=== PATIENT | female | born 1955 | race Caucasian/White ===

== ENCOUNTER 2017-10-08 14:30 | Outpatient (CLI) | payer OTHER | END 2017-10-08 14:31 | disposition home or self-care (01) | LOC: BICMAMMO 14:30 | PROVIDERS: ATTEND Obstetrics & Gynecology | DX: Z12.31 Encounter for screening mammogram for malignant neoplasm of breast (principal); N64.89 Other specified disorders of breast | CPT/HCPCS: 77063; 77067 ==

== ENCOUNTER 2017-10-22 09:05 | Outpatient (CLI) | payer OTHER | END 2017-10-22 09:06 | disposition home or self-care (01) | LOC: BICMAMMO 09:05 | PROVIDERS: ATTEND Obstetrics & Gynecology | DX: Z12.31 Encounter for screening mammogram for malignant neoplasm of breast (principal) | CPT/HCPCS: G0279 ==

== ENCOUNTER 2017-10-31 14:00 | Outpatient (CLI) | payer OTHER ==
[2017-10-31 15:25] LABS: Hemoglobin 13.3 g/dL (12.0-16.0); Mean Corpuscular HGB CONC 34.2 g/dL (32.0-36.0); Mean Corpuscular Hemoglobin 34.2 pg (27.0-31.0); Mean Platelet Volume 7.1 fL (7.4-10.4); Platelet Count 221 thou/uL (130-400); RBC Distribution Width 11.4 % (11.5-14.5); White Blood Cell (WBC) Count 5.2 thou/uL (4.8-10.8)
[2017-10-31 15:30] LABS: PTT 29.1 SEC (22.9-36.1); Prothrombin Time 13.2 SEC (12.0-14.7)
[2017-10-31 15:43] LABS: Anion Gap 13 mmol/L (10-20); BUN (Urea Nitrogen) 22 mg/dL (9.8-20.1); Calc. Creatinine Clearance 0 mL/min (70-130); Calcium 9.5 mg/dL (7.8-10.44); Carbon Dioxide 27 mmol/L (22-29); Chloride 105 mmol/L (98-107); Estimated GFR-MDRD 59; Glucose 90 mg/dL (70-105); Potassium 5.1 mmol/L (3.5-5.1); Sodium 140 mmol/L (136-145)
== END 2017-10-31 14:01 | disposition home or self-care (01) ==
LOC: LABBT 14:00
PROVIDERS: ATTEND Orthopaedic Surgery
DX: Z01.818 Encounter for other preprocedural examination (principal); M17.11 Unilateral primary osteoarthritis, right knee
CPT/HCPCS: 80048; 85027; 85610; 85730; 86850; 86900; 86901; 87081

== ENCOUNTER 2017-11-04 06:07 | Inpatient (IN) | payer OTHER ==
[2017-10-29 14:55] VITALS: BMI 47.8
[2017-11-04] MEDS ORDERED: Vancomycin HCl 1.5 GM in Sodium Chloride 0.9% 250 ML 300 ML IVPB SCH ×2 (06:30→19:00)
[2017-11-04] MEDS ORDERED: CEFAZOLIN/Water 2 GM/20 ML SYRINGE ONE (06:41)
[2017-11-04] MEDS ORDERED: Sodium Chloride 0.9% 100 ML ONE (06:41)
[2017-11-04] MEDS ORDERED: Lidocaine 1% (PF) 30 ML VIAL ONE (06:45)
[2017-11-04] MEDS ORDERED: Midazolam HCl 2 mg/2 ml Vial ONE (06:45)
[2017-11-04] MEDS ORDERED: Fentanyl 100 MCG/2 ML VIAL ONE ×2 (06:45→08:11)
[2017-11-04] MEDS ORDERED: Neomycin-Polymyxin 1 ML AMP ONE ×2 (06:58→07:00)
[2017-11-04] MEDS ORDERED: Bupivacaine/Epinephrine 0.25% 30 ML VIAL ONE ×2 (06:58→06:59)
[2017-11-04] MEDS ORDERED: traMADol HCl 50 MG TAB PO PRN ×3 (07:11→09:55)
[2017-11-04] MEDS ORDERED: Ketorolac Tromethamine 30 MG/ML VIAL IVP PRN (07:11)
[2017-11-04] MEDS ORDERED: HYDROcodone/Acetaminophen 10/325 mg Tablet PO PRN ×2 (07:11→09:55)
[2017-11-04] MEDS ORDERED: Ondansetron HCl/PF 4 MG/2 ML Vial IVP PRN ×3 (07:11→09:55)
[2017-11-04] MEDS ORDERED: Zolpidem Tartrate 5 MG TAB PO PRN ×2 (07:11→09:55)
[2017-11-04] MEDS ORDERED: Promethazine HCl 25 MG/ML VIAL IM PRN ×3 (07:11→09:55)
[2017-11-04] MEDS ORDERED: Promethazine HCl 25 MG/ML VIAL SLOW IVP PRN (08:50)
[2017-11-04] MEDS ORDERED: diphenhydrAMINE 25 MG CAP PO PRN (09:55)
[2017-11-04] MEDS ORDERED: Acetaminophen 325 MG TAB PO PRN (09:55)
[2017-11-04] MEDS ORDERED: Acetaminophen 1,000 MG in Premix Bag 1 BAG IVPB SCH (10:00)
[2017-11-04] MEDS ORDERED: Tranexamic Acid 1,000 MG in Sodium Chloride 0.9% 100 ML IVPB SCH (10:00)
[2017-11-04] MEDS ORDERED: Meperidine HCl/PF 25 MG/ML VIAL ONE (10:26)
--- NOTE | 2017-11-04 12:09 | RAD ---
2 VIEWS RIGHT KNEE: Date: 11/04/17 HISTORY: Status post right knee arthroplasty. FINDINGS: Two views of the right knee show the patient to be status post right knee arthroplasty without periha rdware lucency or fracture. Air in the soft tissues and underlying skin elsa are from recent surge ry. IMPRESSION: Status post right knee arthroplasty without evidence of complication. POS: [facility]
--- NOTE | 2017-11-04 13:15 | OP ---
DATE OF PROCEDURE: 11/04/2017 PREOPERATIVE DIAGNOSIS: Osteoarthrosis, right knee. POSTOPERATIVE DIAGNOSIS: Osteoarthrosis, right knee. PROCEDURE: Right total knee arthroplasty. ANESTHESIA: General. SURGEON: Guy Rizvi M.D. LIQUOR COMMISSIONER: DEBBIE Delacruz COMPLICATIONS: None. CONDITION: Good. ESTIMATED BLOOD LOSS: 250 mL DRAINS: None. TOURNIQUET: None. TECHNIQUE: Consent was obtained. The patient was taken to the operating room and placed in supine p osition. Adequate general anesthesia achieved, the patient's right knee was examined. The patient l acked approximately 8-10 degrees full extension, had approximately 100 degrees of flexion. Ligaments are stable. There is varus deformity. The right knee was then positioned, prepped and draped in th e usual sterile fashion. A tourniquet was not amenable due to the patient's thigh habitus. The jos dard midline vertical incision was made, was taken down to subcutaneous tissue exposing extensor mech anism. Medial parapatellar arthrotomy was performed. Patella subluxed laterally. The patient had s evere medial and patellofemoral arthrosis. Using intramedullary guide, distal 5-degree valgus resect ion on the femur was performed using AP and epicondylar access, proper rotation, position of size 5 c utting block was placed. Anterior, posterior, and chamfer cuts were completed for size 5 evolution f emur. Osteophytes that had also been removed. The tibia was then subluxed anteriorly and the fountain vending mechanic al guide was used to reference from the medial compartment. A proper resection was performed and men isci and cruciate ligaments were debrided. Flexion, extension gaps were then checked with a 10 and t hen 12 mm spacer. The good balancing was noted at 0 and 90 degrees. The patella was then measured a pproximately 7-8 mm resection was performed and 35 mm patella was medialized. Trial components were then placed, 5 femur, 5 tibia, 35 patella with a 12 mm medial pivot bearing surface trial. This was put through range of motion. The patient had excellent flexion and extension, good balancing through a full range. Flexion was still limited to approximately 115 degrees. The patient did have full ex tension. The patellofemoral tracking and alignment was good. It was then irrigated copiously. All surfaces were prepared for cementing. The 5 femur, 5 tibia, and 35 patella were cemented. Excess ce ment removed and again allowed to harden with the 12 mm bearing surface. This was again trialled and the 12 mm was chosen and snap fit. After copious irrigation, the arthrotomy was closed with #2 mers suri and #1 Vicryl, the subcu with 0 and 2-0 Vicryl, and the skin with elsa. A sterile bulky dedrick ssing was applied and the patient taken to recovery in stable condition. Prognosis is good. Begin r ehab protocol. DEBBIE Delacruz, was essential and implantation of the device. He has specialized orthopedic skills al [facility] for retraction and instrumentation of the implant. The patient had significant sized to her medical center clinic h, which required fairly extensive retraction and mobilization to visualize.
[2017-11-04] MEDS ORDERED: Bupivacaine 0.25% HCL 30 ML VIAL ONE (14:30)
[2017-11-04] MEDS ORDERED: Ropivacaine 0.5% HCl/PF (150 MG/30 ML VIAL) ONE (14:30)
[2017-11-04] MEDS ORDERED: Bupivacaine HCl 0.5%/Epinephrine 1:200,000/PF 30 ml Vial ONE (14:30)
[2017-11-04] MEDS ORDERED: ePHEDrine/0.9% NaCl/PF SYRINGE 50 mg/10 ml ONE (14:33)
[2017-11-04] MEDS ORDERED: Ondansetron HCl/PF 4 MG/2 ML Vial ONE (14:33)
[2017-11-04] MEDS ORDERED: Ketorolac Tromethamine 30 MG/ML VIAL ONE (14:33)
[2017-11-04] MEDS ORDERED: Lidocaine 1% PF 5 ML VIAL ONE (14:33)
[2017-11-04] MEDS ORDERED: PROPOFOL 200 MG/20 ML VIAL ONE (14:33)
[2017-11-04] MEDS: CEFAZOLIN/Water 2 GM/20 ML SYRINGE SLOW IVP SCH ×2 (14:40→22:44)
[2017-11-04] MEDS: Ketorolac Tromethamine 30 MG/ML VIAL IVP SCH ×2 (14:41→21:07)
[2017-11-04] MEDS: Sodium Chloride 0.9% 1,000 ML IV SCH ×2 (14:43→21:11)
--- NOTE | 2017-11-04 20:53 | PDOC.PN ---
- Subjective Encounter Start Date: 11/04/17 Encounter Start Time: 20:35 Subjective: Consult for gen med mgmt. s/p R TKA today. No new complaints. Reviewed -: pertinent hx, labs, x-rays and EKG. - Objective MAR Reviewed: Yes Vital Signs & Weight: Vital Signs (12 hours) Temp Pulse Resp BP BP Pulse Ox 11/04/17 19:56 98.7 F 62 16 126/79 98 11/04/17 14:09 162/76 H 11/04/17 12:00 97.8 F 69 16 138/80 94 L Weight Weight 270 lb I&O: 11/03/17 11/04/17 11/05/17 06:59 06:59 06:59 Output Total 200 Balance -200 Additional Labs: Laboratory Tests 10/31/17 10/31/17 10/31/17 14:48 14:48 14:48 WBC 5.2 Hgb 13.3 Hct 39.0 MCV 100.0 H Plt Count 221 PT 13.2 INR 1.0 APTT 29.1 Sodium 140 Potassium 5.1 Chloride 105 Carbon Dioxide 27 Anion Gap 13 BUN 22 H Creatinine 0.96 Estimated GFR (MDRD) 59 Glucose 90 Calcium 9.5 EKG Reviewed by me: Yes (NSR, attenuated R-wave progression, HR 50's) Phys Exam - Physical Examination Constitutional: NAD HEENT: PERRLA, sclera anicteric, oral pharynx no lesions Neck: no nodes, no JVD, full ROM Respiratory: no wheezing, no rales, no rhonchi, clear to auscultation bilateral I-II/ ANDI LUSB Cardiovascular: RRR, no rub, gallop Gastrointestinal: soft, no distention RLE with surgical dressing in place Neurological: moves all 4 limbs Psychiatric: normal affect, A&O x 3 Skin: normal turgor, cap refill <2 seconds Dx/Plan (1) HTN (hypertension) Code(s): I10 - ESSENTIAL (PRIMARY) HYPERTENSION Status: Chronic Qualifiers: Hypertension type: essential hypertension Qualified Code(s): I10 - Essential (primary) hypertension Comment: Continue Bystolic and Valsartan/HCTZ, serial monitoring (2) DM II (diabetes mellitus, type II), controlled Code(s): E11.9 - TYPE 2 DIABETES MELLITUS WITHOUT COMPLICATIONS Status: Chronic Comment: Add ISS, Metformin, ADA (3) Hypothyroidism Code(s): E03.9 - HYPOTHYROIDISM, UNSPECIFIED Status: Chronic Comment: Continue Levothyroxine 112mcg daily (4) HLD (hyperlipidemia) Code(s): E78.5 - HYPERLIPIDEMIA, UNSPECIFIED Status: Chronic (5) Status post total knee replacement, right Code(s): Z96.651 - PRESENCE OF RIGHT ARTIFICIAL KNEE JOINT Status: Acute Comment: Routine Joint-U protocol, DVT ppx, pain control - Plan continue antibiotics, PT/OT, social work professor, DVT proph w/SCDs Stable currently -: Continue home BP regimen -: ISS for glucose control -: Pain control -: DVT ppx * AM lab: CBC * Thank you for the consult. Will continue to follow with primary service.
[2017-11-04] MEDS ORDERED: Dextrose 50% Abboject 50 ML SYRINGE SLOW IVP PRN (20:58)
[2017-11-04] MEDS ORDERED: Dextrose 5% in Water 1,000 ML IV PRN (20:58)
[2017-11-04] MEDS ORDERED: HumaLOG 300 UNITS/3 ML VIAL SC PRN ×2 (20:58)
[2017-11-04] MEDS: FLUoxetine HCl 20 MG CAP PO SCH (21:06)
[2017-11-04] MEDS: Atorvastatin Calcium 10 MG TAB PO SCH (21:07)
[2017-11-04] MEDS: Senokot S 8.6-50 MG TAB PO SCH (21:07)
[2017-11-04] MEDS: Enoxaparin Sodium 30 MG/0.3 ML SYRINGE SC SCH (21:08)
[2017-11-04] MEDS: Bupivacaine 0.5% 50 ML in Sodium Chloride 0.9% 50 ML NERVE BLCK SCH (22:44)
[2017-11-05] MEDS: HYDROcodone/Acetaminophen 10/325 mg Tablet PO PRN ×5 (03:09→23:49)
[2017-11-05 05:03] LABS: Hemoglobin 9.8 g/dL (12.0-16.0); Mean Corpuscular HGB CONC 34.1 g/dL (32.0-36.0); Mean Corpuscular Hemoglobin 34.5 pg (27.0-31.0); Platelet Count 158 thou/uL (130-400); RBC Distribution Width 11.5 % (11.5-14.5); Red Blood Cell (RBC) Count 2.83 mill/uL (4.20-5.40); White Blood Cell (WBC) Count 6.1 thou/uL (4.8-10.8)
[2017-11-05] MEDS: Levothyroxine Sodium 112 MCG TAB PO SCH (05:40)
[2017-11-05] MEDS: Ketorolac Tromethamine 30 MG/ML VIAL IVP SCH (05:41)
[2017-11-05] MEDS: Sodium Chloride 0.9% 1,000 ML IV SCH ×2 (06:06→11:47)
[2017-11-05] MEDS ORDERED: Non-Formulary Item 1 EACH (Valsartan/Hydrochlorothiazide [Valsartan-Hctz 320-25 Mg Tab] 1 PO SCH (09:00)
[2017-11-05] MEDS ORDERED: Nebivolol HCl 2.5 MG TAB PO SCH (09:00)
[2017-11-05] MEDS ORDERED: CeleCOXIB 100 MG CAP PO SCH (09:30)
[2017-11-05] MEDS: Hydrochlorothiazide 25 MG TAB PO SCH (10:27)
[2017-11-05] MEDS: Valsartan 80 MG TAB PO SCH (10:27)
[2017-11-05] MEDS: Multivitamin W/ Minerals 1 TAB PO SCH (10:39)
[2017-11-05] MEDS: Ferrous Gluconate 324 MG TAB PO SCH ×2 (10:44→21:45)
[2017-11-05] MEDS: metFORMIN XR 500 MG TAB PO SCH (10:44)
[2017-11-05] MEDS: Senokot S 8.6-50 MG TAB PO SCH ×2 (10:44→21:45)
[2017-11-05] MEDS: Bupivacaine 0.5% 50 ML in Sodium Chloride 0.9% 50 ML NERVE BLCK SCH ×2 (11:21→18:14)
[2017-11-05] MEDS: Enoxaparin Sodium 30 MG/0.3 ML SYRINGE SC SCH ×2 (11:46→21:44)
--- NOTE | 2017-11-05 11:47 | PQF ---
DATE: 11-05-17 ATTN: DR. MASOUD GROVES Please exercise your independent, professional judgment in responding to the clarification form. Clinical indicators are provided on the bottom of this form for your review Please check appropriate box(s): BMI > 40 with associated diagnosis of: (check one) [x] Morbid (Severe) Obesity [ ] Due to excess calories [ ] with Alveolar Hypoventilation (Pickwickian syndrome) [ ] Overweight [ ] Obesity [ ] Other diagnosis [ ] Unable to determine In addition, please specify: Present on Admission (POA): [x] Yes [ ] No [ ] Unable to Determine For continuity of documentation, please document condition throughout progress notes and discharge summary. Thank You. BMI < 19 Under weight 19 - 24.9 Healthy 25.0 - 29.9 Slightly Overweight 30.0 - 34.9 Obese 35.0 - 39.9 Severely Obese 40.0 and Over Morbidly Obese CLINICAL INDICATORS - SIGNS / SYMPTOMS / LABS BMI of: 47.8 OP NOTE 11-04-17: A TOURNIQUET WAS NOT AMENABLE DUE TO PATIENTS THIGH HABITUS, THE PATIENT HAD SIGNIFICANT SIZED TO HER THIGH, WHICH REQUIRED FAIRLY EXTENSIVE RETRACTION AND MOBILIZATION TO VISUALIZE. RISK FACTORS: PROCEDURE NOTE: HX OF GASTRIC SLEEVE CONSULT NOTE DR. SU 11-04-17: HX HTN, DM 2, HYPOTHYROIDISM, HLD TREATMENTS: OP NOTE 11-04-17: THE PATIENT HAD SIGNIFICANT SIZED TO HER THIGH, WHICH REQUIRED FAIRLY EXTENSIVE RETRACTION AND MOBILIZATION TO VISUALIZE. (This form is maintained as a part of the permanent medical record) 2014 [employer]. All Rights Reserved [email or web address] Office: [phone] [facility]
[2017-11-05] MEDS: FLUoxetine HCl 20 MG CAP PO SCH (21:45)
[2017-11-05] MEDS: CeleCOXIB 100 MG CAP PO SCH (21:45)
[2017-11-05] MEDS: Atorvastatin Calcium 10 MG TAB PO SCH (21:45)
--- NOTE | 2017-11-05 22:52 | PDOC.PN ---
- Subjective Encounter Start Date: 11/05/17 Encounter Start Time: 18:00 Doing very well. No complaints except minimal discomfort in the knee. - Objective Vital Signs & Weight: Vital Signs (12 hours) Temp Pulse Resp BP BP Pulse Ox 11/05/17 20:00 98.5 F 65 16 11/05/17 19:38 98.5 F 65 16 110/69 94 L 11/05/17 16:14 98.4 F 58 L 18 112/66 94 L 11/05/17 11:48 98.6 F 56 L 18 100/62 92 L Weight Admit Weight 270 lb Weight 270 lb I&O: 11/04/17 11/05/17 11/06/17 06:59 06:59 06:59 Intake Total 940 700 Output Total 1050 Balance -110 700 Result Diagrams: 11/05/17 04:40 Additional Labs: Accuchecks 11/05/17 06:35 POC Glucose 125 H Phys Exam - Physical Examination HEENT: PERRLA, oral pharynx no lesions Neck: no JVD, supple Respiratory: no wheezing, no rales, no rhonchi, clear to auscultation bilateral Cardiovascular: RRR, no significant murmur Gastrointestinal: soft, non-tender, no distention Musculoskeletal: no edema Psychiatric: normal affect, A&O x 3 Skin: no rash Dx/Plan (1) Status post total knee replacement, right Code(s): Z96.651 - PRESENCE OF RIGHT ARTIFICIAL KNEE JOINT Status: Acute Comment: Routine Joint-U protocol, DVT ppx, pain control (2) HLD (hyperlipidemia) Code(s): E78.5 - HYPERLIPIDEMIA, UNSPECIFIED Status: Chronic (3) HTN (hypertension) Code(s): I10 - ESSENTIAL (PRIMARY) HYPERTENSION Status: Chronic Qualifiers: Hypertension type: essential hypertension Qualified Code(s): I10 - Essential (primary) hypertension Comment: Continue Bystolic and Valsartan/HCTZ, serial monitoring (4) Hypothyroidism Code(s): E03.9 - HYPOTHYROIDISM, UNSPECIFIED Status: Chronic Comment: Continue Levothyroxine 112mcg daily - Plan * Doing very well overall. She clarified that she is not diabetic, but takes the metformin for PCOS. Continue with home med regimen.
[2017-11-06] MEDS: Sodium Chloride 0.9% 1,000 ML IV SCH (00:36)
[2017-11-06 04:52] LABS: Hemoglobin 9.1 g/dL (12.0-16.0); Mean Corpuscular HGB CONC 35.4 g/dL (32.0-36.0); Mean Corpuscular Hemoglobin 35.7 pg (27.0-31.0); Mean Platelet Volume 7.2 fL (7.4-10.4); Platelet Count 162 thou/uL (130-400); RBC Distribution Width 11.4 % (11.5-14.5); Red Blood Cell (RBC) Count 2.54 mill/uL (4.20-5.40); White Blood Cell (WBC) Count 5.4 thou/uL (4.8-10.8)
[2017-11-06] MEDS: Levothyroxine Sodium 112 MCG TAB PO SCH (05:25)
[2017-11-06 07:52] VITALS: BP 126/66; TEMP 99.2
[2017-11-06] MEDS: Valsartan 80 MG TAB PO SCH (07:52)
[2017-11-06] MEDS: metFORMIN XR 500 MG TAB PO SCH (07:52)
[2017-11-06] MEDS: Multivitamin W/ Minerals 1 TAB PO SCH (07:53)
[2017-11-06] MEDS: HYDROcodone/Acetaminophen 10/325 mg Tablet PO PRN (07:53)
[2017-11-06] MEDS: Ferrous Gluconate 324 MG TAB PO SCH (07:54)
[2017-11-06] MEDS: Hydrochlorothiazide 25 MG TAB PO SCH (07:54)
[2017-11-06] MEDS: Senokot S 8.6-50 MG TAB PO SCH (07:54)
[2017-11-06] MEDS: CeleCOXIB 100 MG CAP PO SCH (07:55)
[2017-11-06] MEDS: Enoxaparin Sodium 30 MG/0.3 ML SYRINGE SC SCH (07:55)
[2017-11-06] MEDS ORDERED: Calcium Carbonate + Vit D 1 TAB PO SCH (09:00)
[2017-11-06] MEDS ORDERED: [UNRECOGNIZED DRUG - OTHER] PO SCH (09:00)
[2017-11-06] MEDS ORDERED: Multivit, Therapeutic 1 TAB PO SCH (09:00)
[2017-11-06] MEDS ORDERED: Cyanocobalamin (Vitamin B-12) 1,000 MCG TAB PO SCH (09:00)
[2017-11-06] MEDS ORDERED: CYANOCOBALAMIN PO SCH (09:00)
[2017-11-06] MEDS ORDERED: VITAMIN D3 PO SCH (09:00)
[2017-11-06] MEDS ORDERED: CALCIUM CARBONATE PO SCH (09:00)
[2017-11-06] MEDS ORDERED: Aspirin 325 mg Enteric Coated Tablet PO SCH (09:00)
[2017-11-06] MEDS ORDERED: Non-Formulary Item 1 EACH (Multivitamin [Multivitamins] 1 CAP) PO SCH (09:00)
== END 2017-11-06 11:14 | disposition home or self-care (01) | DRG 470 ==
LOC: SURG A 06:07 → SJJU 12:03
PROVIDERS: ADMIT Orthopaedic Surgery; ATTEND Orthopaedic Surgery
PROC: 0SRC0J9 Replacement of Right Knee Joint with Synthetic Substitute, Cemented, Open Approach (ICD-10-PCS; principal; 2017-11-04)
DX: M17.11 Unilateral primary osteoarthritis, right knee (principal); I10 Essential (primary) hypertension; K21.9 Gastro-esophageal reflux disease without esophagitis; R00.2 Palpitations; I34.0 Nonrheumatic mitral (valve) insufficiency; E78.00 Pure hypercholesterolemia, unspecified; I49.1 Atrial premature depolarization; I49.3 Ventricular premature depolarization; E28.2 Polycystic ovarian syndrome; Z98.84 Bariatric surgery status; E03.9 Hypothyroidism, unspecified; F32.9 Major depressive disorder, single episode, unspecified; Z82.49 Family history of ischemic heart disease and other diseases of the circulatory system; Z88.1 Allergy status to other antibiotic agents; Z88.8 Allergy status to other drugs, medicaments and biological substances; Z79.84 Long term (current) use of oral hypoglycemic drugs
CPT/HCPCS: 36415; 36416; 85027; C1713; C1776; G8978-GP-CK; G8979-GP-CJ; J0670; J1650; J1885; J2001; J2175; J2250; J2405; J2704; J2795; J3010; J3370; J3490; J7050; S0020

== ENCOUNTER 2020-09-20 08:20 | Outpatient (CLI) | payer OTHER ==
[2020-09-20 17:52] LABS: SARS-CoV-2 PCR by NAA Not Detected (NotDetected)
== END 2020-09-20 08:21 | disposition home or self-care (01) ==
LOC: LABBT 08:20
PROVIDERS: ATTEND Internal Medicine Gastroenterology
DX: Z01.812 Encounter for preprocedural laboratory examination (principal); Z12.11 Encounter for screening for malignant neoplasm of colon; K21.9 Gastro-esophageal reflux disease without esophagitis; E66.3 Overweight; Z20.822 Contact with and (suspected) exposure to COVID-19
CPT/HCPCS: 87635; U0003; U0005

== ENCOUNTER 2020-09-23 11:41 | Day surgery (SDC) | payer OTHER ==
[2020-09-22 09:26] VITALS: BMI 46.3
[2020-09-23] MEDS ORDERED: PROPOFOL 200 MG/20 ML VIAL ONE (13:44)
== END 2020-09-23 15:48 | disposition home or self-care (01) ==
LOC: SDC 11:41
PROVIDERS: ATTEND Internal Medicine Gastroenterology
PROC: 0DJD8ZZ Inspection of Lower Intestinal Tract, Via Natural or Artificial Opening Endoscopic (ICD-10-PCS; principal; 2020-09-23)
PROC: 0DB58ZX Excision of Esophagus, Via Natural or Artificial Opening Endoscopic, Diagnostic (ICD-10-PCS; principal; 2020-09-23)
DX: Z12.11 Encounter for screening for malignant neoplasm of colon (principal); D12.2 Benign neoplasm of ascending colon; D12.3 Benign neoplasm of transverse colon; D12.4 Benign neoplasm of descending colon; K64.8 Other hemorrhoids; K62.89 Other specified diseases of anus and rectum; K44.9 Diaphragmatic hernia without obstruction or gangrene; K21.00 Gastro-esophageal reflux disease with esophagitis, without bleeding; Z79.84 Long term (current) use of oral hypoglycemic drugs; Z79.899 Other long term (current) drug therapy; Z88.1 Allergy status to other antibiotic agents; Z88.8 Allergy status to other drugs, medicaments and biological substances
CPT/HCPCS: 88305; J2704

== ENCOUNTER 2021-01-17 14:50 | Outpatient (CLI) | payer OTHER | END 2021-01-17 14:51 | disposition home or self-care (01) | LOC: BICMAMMO 14:50 | PROVIDERS: ATTEND Obstetrics & Gynecology Gynecology | DX: Z12.31 Encounter for screening mammogram for malignant neoplasm of breast (principal); Z98.890 Other specified postprocedural states | CPT/HCPCS: 77063; 77067 ==

== ENCOUNTER 2021-02-07 13:33 | Emergency (ER) | payer OTHER | END 2021-02-07 15:08 | disposition home or self-care (01) | LOC: ERS 13:33 | DX: M20.11 Hallux valgus (acquired), right foot (principal); I10 Essential (primary) hypertension; E03.9 Hypothyroidism, unspecified ==

== ENCOUNTER 2025-03-17 07:44 | Outpatient (CLI) | payer OTHER | END 2025-03-17 07:45 | disposition home or self-care (01) | LOC: BICCT 07:44 | PROVIDERS: ATTEND Internal Medicine Cardiovascular Disease | DX: R06.02 Shortness of breath (principal); I77.810 Thoracic aortic ectasia; I25.10 Atherosclerotic heart disease of native coronary artery without angina pectoris | CPT/HCPCS: 75571 ==